=== PATIENT | female | born 1965 | race American Indian/Alaskan Native ===

== ENCOUNTER 2017-02-04 10:23 | Emergency (ER) | payer MEDICAID, OTHER ==
[2017-02-04 10:41] VITALS: BMI 28.1
--- NOTE | 2017-02-04 10:47 | ED PDOC ---
HPI: Abdomen Time Seen by Provider: 02/04/17 10:28 Chief Complaint (Nursing): Abdominal Pain Chief Complaint (Provider): Abdominal pain, contipation History Per: Patient History/Exam Limitations: no limitations Onset/Duration Of Symptoms: Days Outside of [place] travel?: No Current Symptoms Are (Timing): Still Present Pain Scale Rating Of: 8 Location Of Pain/Discomfort: Diffuse Quality Of Discomfort: Sharp, Cramping Associated Symptoms: Nausea, Vomiting (Vomiting once 2 days ago ). denies: Fever, Chills Additional Complaint(s): Pt states she has been constipated on/off for 3 months. Pt states it would be for a week or so at a time. Pt states this time her last BM was 3.5 weeks ago, she is now nauseous and vomited once 2 days ago. Pt has 2 c-sections and hysterectomy. No fever/chills/. Past Medical History Reviewed: Historical Data, Nursing Documentation, Vital Signs Vital Signs: Last Vital Signs Temp 98.1 F 02/04/17 10:41 Pulse 108 H 02/04/17 10:41 Resp 20 02/04/17 10:41 BP 119/79 02/04/17 10:41 Pulse Ox 99 02/04/17 10:41 - Medical History PMH: Anxiety, HTN, Hypercholesterolemia, TIA Denies: Chronic Kidney Disease - Surgical History Surgical History: No Surg Hx - Family History Family History: States: Unknown Family Hx - Living Arrangements Living Arrangements: With Family - Social History Current smoker - smoking cessation education provided: No Alcohol: None Drugs: Denies - Home Medications Home Medications: Ambulatory Orders Medication Instructions Recorded Clonidine [Clonidine] 0.4 mg PO BID 04/02/15 Metoprolol Tartrate [Lopressor] 100 mg PO DAILY 04/02/15 Atorvastatin [Lipitor] 40 mg PO DAILY 05/05/16 Ibuprofen [Motrin Tab] 800 mg PO TID 05/05/16 Omeprazole Magnesium [Prilosec Otc] 20 mg PO DAILY 05/05/16 amLODIPine [Norvasc] 10 mg PO DAILY 05/05/16 - Allergies Allergies/Adverse Reactions: Allergies Allergy/AdvReac Type Severity Reaction Status Date / Time cephalexin monohydrate Allergy SWELLING Verified 02/04/17 10:41 [From Keflex] ciprofloxacin [From Cipro] Allergy SWELLING Verified 02/04/17 10:41 [place] And Derivatives Allergy SWELLING Verified 02/04/17 10:41 EGG Allergy unknown Verified 02/04/17 10:41 metoclopramide HCl Allergy ANGIOEDEMA Verified 02/04/17 10:41 [From Reglan] prochlorperazine Allergy SWELLING Verified 02/04/17 10:41 [From Compazine] prochlorperazine maleate Allergy SWELLING Verified 02/04/17 10:41 [From Compazine] sulfamethoxazole Allergy VOMITING Verified 02/04/17 10:41 [From Bactrim] tramadol Allergy RASH Verified 02/04/17 10:41 trimethoprim [From Bactrim] Allergy VOMITING Verified 02/04/17 10:41 Review of Systems ROS Statement: Except As Marked, All Systems Reviewed And Found Negative Gastrointestinal: Positive for: Nausea, Vomiting, Abdominal Pain, Constipation Physical Exam - Reviewed Nursing Documentation Reviewed: Yes Vital Signs Reviewed: Yes - Physical Exam Appears: Positive for: Well, Non-toxic, No Acute Distress Head Exam: Positive for: ATRAUMATIC, NORMAL INSPECTION, NORMOCEPHALIC Skin: Positive for: Normal Color, Warm, DRY Eye Exam: Positive for: Normal appearance ENT: Positive for: Normal ENT Inspection Neck: Positive for: Normal, Painless ROM Cardiovascular/Chest: Positive for: Regular Rate, Rhythm Respiratory: Positive for: CNT, Normal Breath Sounds Gastrointestinal/Abdominal: Positive for: Soft, Tenderness (Diffuse ). Negative for: Normal Exam, Bowel Sounds (Hypoactive BS ), Distended, Guarding Back: Positive for: Normal Inspection Rectal: Positive for: Normal Exam, Rectal Tone Is:, Hemorrhoids (Soft, extena;l ), Other (No stool palpated ). Negative for: Stool Is Heme: ((-)), Mass Extremity: Positive for: Normal ROM Neurologic/Psych: Positive for: Alert, Oriented - Laboratory Results Result Diagrams: 02/04/17 11:05 02/04/17 11:05 - ECG O2 Sat by Pulse Oximetry: 99 Pulse Ox Interpretation: Normal Medical Decision Making Medical Decision Making: Fleet enema. Pt without BM in ER. Disposition - Clinical Impression Clinical Impression: Chronic constipation - Patient ED Disposition Is Patient to be Admitted: No Counseled Patient/Family Regarding: Diagnosis, Need For Followup - Disposition Referrals: Madeline JOHN,MD [place] [Medical Doctor] - Disposition: Routine/Home Disposition Time: 16:10 Condition: GOOD Instructions: Constipation (ED)
[2017-02-04 10:50] VITALS: BP 119/79; PULSE 108; RESP 20; TEMP 98.1; O2SAT 99
[2017-02-04 11:23] LABS: HEMATOCRIT 38.4 % (34.0-47.0); MEAN CELL VOLUME 89.6 fl (81.0-99.0); MEAN CORPUSCULAR HEMOGLOBIN 29.4 pg (27.0-31.0); MEAN CORPUSCULAR HGB CONC 32.8 g/dL (33.0-37.0); RED CELL DISTRIBUTION WIDTH 13.8 % (11.5-14.5); WHITE BLOOD COUNT 11.6 K/uL (4.8-10.8)
[2017-02-04 11:35] LABS: ALB/GLOB RATIO 1.1 (1.0-2.1); ALKALINE PHOSPHATASE 65 U/L (38-126); ALT/SGPT 28 U/L (9-52); AST/SGOT 23 U/L (14-36); BILIRUBIN,TOTAL 0.5 mg/dl (0.2-1.3); BLOOD UREA NITROGEN 8 mg/dl (7-17); CALCIUM 9.1 mg/dL (8.4-10.2); CARBON DIOXIDE 23 mmol/L (22-30); CHLORIDE 106 mmol/L (98-107); GFR AFRICAN-AMERICAN > 60; GLUCOSE,RANDOM 116 mg/dL (65-105); POTASSIUM 4.5 MMOL/L (3.6-5.0); SODIUM 139 mmol/l (132-148); TOTAL PROTEIN 7.2 G/DL (6.3-8.2)
[2017-02-04] MEDS ORDERED: Sodium Chloride 0.9% 1,000 ML IV STA (11:39)
[2017-02-04] MEDS ORDERED: Sodium Chloride 0.9% 50 ML IV ONE (12:46)
[2017-02-04] MEDS ORDERED: Iohexol 300 100 ML IJ ONE (12:46)
--- NOTE | 2017-02-04 13:46 | CT ---
PROCEDURE: CT Abdomen and Pelvis with contrast HISTORY: No BM x 3 weeks, nausea COMPARISON: 09/19/2011 CT scan TECHNIQUE: Contrast dose: 95 cc Radiation dose: Total exam DLP = 1030 mGy-cm. This CT exam was performed using one or more of the following dose reduction techniques: Automated exposure control, adjustment of the mA and/or kV according to patient size, and/or use of iterative reconstruction technique. FINDINGS: LOWER THORAX: Minor areas of posterior pleural thickening or minor atelectasis are seen at the lung bases. Minor amount of linear platelike atelectasis is also seen in the posterior lingula and medial right middle lobe. No pleural effusion is clearly seen. No significant pericardial effusion is noted. Distal esophagus is unremarkable as well as the visualized stomach. LIVER: Fatty infiltrated without evidence of focal mass or intrahepatic ductal dilatation. GALLBLADDER AND BILE DUCTS: Unremarkable. PANCREAS: Pancreas is normal in outline without evidence of peripancreatic inflammatory change. SPLEEN: Unremarkable. ADRENALS: Unremarkable. No mass. 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 Left kidney is unremarkable. No perinephric changes or renal masses are noted. VASCULATURE: There is mild atherosclerotic change of the aorta without aneurysmal dilatation. BOWEL: Moderate residual fecal material is seen in the right colon, transverse colon and proximal left colon extending to the mid left colon. No pericolonic inflammatory change or bowel wall thickening is noted. Findings suggest constipation. Minor diverticular changes are noted. No small bowel dilatation or small bowel obstruction is noted. APPENDIX: Normal appendix. PERITONEUM: There is evidence of some nonspecific fluid in the posterior pelvis. Small amount of fluid was seen in this region on prior study. LYMPH NODES: Unremarkable. No enlarged lymph nodes. BLADDER: Unremarkable. REPRODUCTIVE: Uterus is been removed. Visualized vaginal cuff region is unremarkable. There is evidence of a small round low density cyst in the left posterior adnexal region measuring 2.2 centimeters by 2 centimeters. Similar structure is faintly seen on the prior study in retrospect. This probably reflects residual left ovary although correlation with surgical history would be suggested. Right ovary is also probably appreciated on the right side of the fluid. No presacral soft tissue masses are noted elsewhere. BONES: No fracture. No evidence of lytic process. Mild degenerative changes in the spine. OTHER FINDINGS: None. IMPRESSION: No evidence of bowel obstruction or diverticulitis. Moderate residual fecal material seen throughout the majority of the colon as described above suggesting moderate constipation. No appreciable obstructing mass noted. Further clinical follow-up and colonoscopy would be suggested. Status post hysterectomy. Nonspecific low-density fluid in the posterior pelvis as well as what appears to be residual ovaries. Fluid was seen on the prior study from 2010 although mildly increased. If there is a history of carcinoma or or endometriosis, laparoscopic evaluation would be suggested. There is a small round low density 2 cm cyst seen in the left adnexa, also possibly faintly seen on the prior study in retrospect.
== END 2017-02-04 16:26 | disposition home or self-care (01) ==
LOC: H.ER 10:23
DX: K59.00 Constipation, unspecified (principal); E78.00 Pure hypercholesterolemia, unspecified; F41.9 Anxiety disorder, unspecified; I10 Essential (primary) hypertension; Z86.73 Personal history of transient ischemic attack (TIA), and cerebral infarction without residual deficits; Z90.710 Acquired absence of both cervix and uterus